=== PATIENT | female | born 1995 | race Caucasian/White ===

== ENCOUNTER → 2018-01-16 | Outpatient (CLI) | payer OTHER ==
--- NOTE | 2018-01-16 10:34 | CPEEG ---
[f rep st] ELECTROENCEPHALOGRAM DATE OF STUDY: 01/16/2018 INTERPRETATION: Normal EEG during wakefulness and sleep. There were no potentially epileptogenic ab normalities present during the recording. REPORT: This EEG contains 10 Hz alpha activity over the posterior head regions. There was no abnorm al activation at rest, with photic stimulation or hyperventilation. The patient had a normal hyperve ntilation buildup response. The patient became drowsy and fell asleep during the study. There was n o abnormal activation with drowsiness, sleep, or during times of arousal. Copy requested to: Dr. Ramo Odell /[id number]/[id number]
== END ==
LOC: FCPNEURO 07:51
PROVIDERS: ATTEND Psychiatry & Neurology Clinical Neurophysiology
DX: R42 Dizziness and giddiness (principal); R51 Headache